=== PATIENT | female | born 1985 | race African-American/Black ===

== ENCOUNTER 2023-07-20 15:20 | Outpatient (CLI) | payer BC | END 2023-07-20 15:21 | disposition home or self-care (01) | LOC: CSHMAMMO 15:20 | PROVIDERS: ATTEND Nurse Practitioner Family | DX: Z12.31 Encounter for screening mammogram for malignant neoplasm of breast (principal) | CPT/HCPCS: 77063; 77067 ==

== ENCOUNTER 2024-10-22 15:05 | Outpatient (CLI) | payer BC | END 2024-10-22 15:06 | disposition home or self-care (01) | LOC: CSHMAMMO 15:05 | PROVIDERS: ATTEND Nurse Practitioner Family | DX: Z12.31 Encounter for screening mammogram for malignant neoplasm of breast (principal) | CPT/HCPCS: 77063; 77067 ==